=== PATIENT | male | born 1960 | race African-American/Black ===

== ENCOUNTER → 2022-08-31 11:43 | Outpatient (BNVA) | payer OTHER, SELFPAY | PROVIDERS: Visit Provider Physician Assistant | DX: G95.9 Disease of spinal cord, unspecified (principal) | CPT/HCPCS: 99202 ==

== ENCOUNTER 2022-12-22 15:14 | Outpatient (AMB) | payer OTHER, SELFPAY ==
--- NOTE | 2022-12-22 15:19 | A.SPINEOV_ITS ---
Intake Intake Visit Reasons: discuss surgery Intake Note: Mr. Biswas is here today to discuss surgery. Assessment & Plan Assessment & Plan (1) Cervical myelopathy: Code(s): G95.9 - Disease of spinal cord, unspecified Plan Dear?colleague,? On?12/22 2022.??I?saw?for?pre?operative?visit?your?patient?Peter?True.??He?was?evaluated ?by?[facility]?Dionisio t?p.a.?recently?and?I?refer?to?his?note?for?detail?history?physical?exam?and?carlos cription?of?imaging.??In?summary,?he?suffering?from?cervical?myelopathy?due?to?p rogressive?see?C4?and?C4-5?spinal?stenos is?with?myelomalacia.??He?was?offered?a?C3-4?and?C4-5?anterior?diskectomy?and?fu marialuisa.??Today,?we?discussed?the?procedure,?possible?complications?and?expected?po stoperative?course.??He?wants?to?proceed .??He?scheduled?for?January?.??He?will?get?clearance?from?his?news production assistant?a t?[facility]. I?spent?22?minutes?in?his?consult?to?discuss?the?plan?of?surgery. Thank?you?for?the?referral.?? Mike?Yesenia??,?PhD Spine?Fellowship?Trained?Neurosurgeon Director,?[facility]? [facility]? Coding Level of Care Code Est Pt Level 3 (81276) Diagnoses Cervical myelopathy G95.9
--- NOTE | 2022-12-22 15:19 | HO.SPINEOV ---
Intake Intake Visit Reasons: discuss surgery Intake Note: Mr. Biswas is here today to discuss surgery. Assessment & Plan Assessment & Plan (1) Cervical myelopathy: Code(s): G95.9 - Disease of spinal cord, unspecified Plan Dear?colleague,? On?12/22 2022.??I?saw?for?pre?operative?visit?your?patient?Peter?True.??He?was?evaluated?by?[facility]?p.a.?recently?and?I?refer?to?his?note?for?detail?history?physical?exam?and?description?of?imaging.??In?summary,?he?suffering?from?cervical?myelopathy? due?to?progressive?see?C4?and?C4-5?spinal?stenosis?with?myelomalacia.??He?was?offered?a?C3-4?and?C4-5?anterior?diskectomy?and?fusion.??Today,?we?discussed?the?procedure,?possible?complications?and?expected?postoperative?course.??He?wants?to?proceed.? ?He?scheduled?for?January?.??He?will?get?clearance?from?his?control manager?at?[facility]. I?spent?22?minutes?in?his?consult?to?discuss?the?plan?of?surgery. Thank?you?for?the?referral.?? Mike?Yeseina??,?PhD Spine?Fellowship?Trained?Neurosurgeon Director,?[facility]? [facility]? Coding Level of Care Code Est Pt Level 3 (01716) Diagnoses Cervical myelopathy G95.9
== END 2022-12-22 15:53 | disposition home or self-care (01) ==
PROVIDERS: Visit Provider Neurological Surgery
DX: G95.9 Disease of spinal cord, unspecified (principal)
CPT/HCPCS: 99213

== ENCOUNTER → 2022-12-22 15:14 | Outpatient (BNVA) | payer OTHER, SELFPAY | PROVIDERS: Visit Provider Neurological Surgery | DX: G95.9 Disease of spinal cord, unspecified (principal) | CPT/HCPCS: 99212 ==

== ENCOUNTER 2023-02-05 14:41 | Outpatient (AMB) | payer OTHER, SELFPAY ==
--- NOTE | 2023-02-05 15:05 | A.SPINEOV_ITS ---
Intake Intake Visit Reasons: Discuss surgery Intake Note: and Mrs Biswas are here today to re-discuss surgery for Mr. Biswas. Management Architect Required: No Allergies diphenhydramine [From Benadryl] Allergy (Unknown, Verified 02/03/23 11:16) Unknown metoclopramide [From Reglan] Allergy (Unknown, Verified 02/03/23 11:16) Unknown cetirizine Allergy (Verified 02/05/23 09:04) Unknown Assessment & Plan Assessment & Plan (1) Cervical myelopathy: Code(s): G95.9 - Disease of spinal cord, unspecified Plan Mr Biswas came in with his to review his procedure again. He is scheduled for ACDF C3-4, C4-5. We reviewed his diagnosis of myelopathy and the procedure again at length. They understand the goal the procedures to take the pressure off the spinal cord but that there is cord signal change suggesting spinal cord irritation and that the primary objective is to prevent him from getting worse, not necessarily to reverse all of the symptoms he is having currently. I did explain to him however that normally patients do feel improvements postoperatively. Pt was given risk and benefits of surgery including but not limited to infection, hematoma , nerve injury,durotomy, weakness,bowel/bladder injury, persistent pain, vocal hoarseness, dysphagia as well as the option to continue with conservative treatment and patient wishes to proceed with surgery. Pt is aware they should stop their motrin, aspirin 7 days prior to surgery. All questions were answered to the best of our ability. Total amount of time spent in this visit was 20 minutes in discussion of symptoms, cervical MRI imaging results and subsequent plan of care Holland Patterson MD,PhD [facility] Coding Level of Care Code Est Pt Level 3 (61862) Diagnoses Cervical myelopathy G95.9
== END 2023-02-05 15:20 | disposition home or self-care (01) ==
PROVIDERS: PCP Internal Medicine; Visit Provider Physician Assistant
DX: G95.9 Disease of spinal cord, unspecified (principal)
CPT/HCPCS: 99213

== ENCOUNTER → 2023-02-05 14:41 | Outpatient (BNVA) | payer OTHER, SELFPAY | PROVIDERS: PCP Internal Medicine; Visit Provider Physician Assistant | DX: G95.9 Disease of spinal cord, unspecified (principal) | CPT/HCPCS: 99212 ==

== ENCOUNTER → 2023-02-11 07:42 | Outpatient (BNV) | payer OTHER, SELFPAY | PROVIDERS: PCP Internal Medicine; Visit Provider Physician Assistant | DX: G95.9 Disease of spinal cord, unspecified (principal); M48.02 Spinal stenosis, cervical region | CPT/HCPCS: 20936; 22551; 22552; 22845; 22853; 99499 ==

== ENCOUNTER → 2023-02-11 07:42 | Day surgery (SDC) | payer OTHER, SELFPAY ==
--- NOTE | 2023-02-10 13:54 | HO.ANESPROP2 ---
Documented by User: Melita Pandey NP 02/10/23 14:09 HPI - Anesthesia Eval Consult details Narrative: 63yo M for C3-4,C4-5 Ant Cerv Discectomy w/ fusion Not seen in PAT d/t pt admission to [facility]. Pt admitted to [facility] 01/27/23-01/28/23 with dizziness. No stroke. Neuro signed off with no recommended f/u. Symptoms resolved. No change in regular tx plan. Cardiac optimized per 02/10/23 office visit. HFrEF - carvedilol and entresto. Farxiga stemi 2014 - cath = nonobstructive PMFSH Active Problems Active Problems: All Active Problems (Updated 02/05/23 @ 09:00 by Lisa Castro RN) Cervical myelopathy (Acute) Past Medical History Medical History Glaucoma HTN (hypertension) BPH (benign prostatic hyperplasia) Old DE (myocardial infarction) Renal cyst Prediabetes Carpal tunnel syndrome on right Leukopenia Infiltrative cardiomyopathy Degenerative disc disease, cervical Small vessel disease, cerebrovascular Mild cognitive impairment Migraine Uveitis Multinodular goiter Elevated blood lead level Macular degeneration of left eye Recurrent urticaria Dermatitis venenata Lumbar spinal stenosis CKD (chronic kidney disease) COVID-19 Surgical History Surgical History Hx of carpal tunnel repair Hx of umbilical hernia repair Status post glaucoma surgery H/O colonoscopy Social History Social History Are you a primary career guidance technician to a significant other at home: No Do you presently have visiting nurse or other home services: No Patient Tobacco Use Status: Never used Tobacco Use of substances other than those prescribed or required for medical reasons: No Have you been hit, kicked, punched, or otherwise hurt by someone within the past year? If so, by whom?: No Are you DNR?: No Advance Directives: No Advance Directives Information Provided: Yes Advance Directives on File: No Recently lost weight without trying: No Eating poorly because of decreased appetite: No Nutrition Risks: No Nutritional Risk Poor oral hygiene: No Meds Allergies Allergy/AdvReac Type Severity Reaction Status Date / Time diphenhydramine Allergy Unknown Unknown Verified 02/03/23 11:16 [From Benadryl] metoclopramide [From Reglan] Allergy Unknown Unknown Verified 02/03/23 11:16 cetirizine Allergy Unknown Verified 02/05/23 09:04 Home Medications Medication Instructions Recorded Confirmed Last Taken Type aspirin 81 mg chewable tablet 1 tab PO DAILY 01/27/23 01/27/23 02/08/23 History atorvastatin 80 mg tablet 80 mg PO BEDTIME 01/27/23 02/05/23 02/10/23 History carvedilol 25 mg tablet 25 mg PO BID 02/05/23 02/05/23 02/11/23 History dapagliflozin propanediol 5 mg 5 mg PO QAM 02/05/23 02/05/23 02/10/23 History tablet (Farxiga) prednisolone acetate 1 % eye 1 drp BID 02/05/23 02/05/23 02/10/23 History drops,suspension sacubitril 49 mg-valsartan 51 mg 1 tab PO BID 02/05/23 02/05/23 02/10/23 History tablet (Entresto) tamsulosin 0.4 mg capsule 0.8 mg PO BEDTIME 02/05/23 02/05/23 02/10/23 History Exam Exam Date and Time: February 10, 2023 1354 Height,Weight and Vital Signs: Height 5 ft 10 in Pertinent Lab Results Pertinent Lab Results: CBC and WBC from outside facility 01/18/23 WNL Narrative Narrative: EKG 01/2023 SB with 1st deg AV block Possible LAE Rightward axis Incomp RBBB Septal infarct, age undetermined Unchanged per cardiac clearance note Per Cardiology note: ECHO Nml LV size with proximal septal thickening EF 51% Cardiac MRI anterior lateral wall patchy diffuse uptake and basal inferior and inferlateral wall uptake. Cardiac cath 2020 No obstructive disease Cardiac biopsy 2021 negative for sarcoidosis or amyloidosis Assessment and Plan Assessment Anesthesia Assessment: Chart Reviewed Documented by User: Feliciano Macias MD 02/11/23 10:09 [facility] Past Medical History Medical History Glaucoma HTN (hypertension) BPH (benign prostatic hyperplasia) Old DE (myocardial infarction) Renal cyst Prediabetes Carpal tunnel syndrome on right Leukopenia Infiltrative cardiomyopathy Degenerative disc disease, cervical Small vessel disease, cerebrovascular Mild cognitive impairment Migraine Uveitis Multinodular goiter Elevated blood lead level Macular degeneration of left eye Recurrent urticaria Dermatitis venenata Lumbar spinal stenosis CKD (chronic kidney disease) COVID-19 Family History Family history of problems with anesthesia: No Surgical History Surgical History Hx of carpal tunnel repair Hx of umbilical hernia repair Status post glaucoma surgery H/O colonoscopy History of Problems with Anesthesia: No Social History Social History Are you a primary career guidance technician to a significant other at home: No Do you presently have visiting nurse or other home services: No Patient Tobacco Use Status: Never used Tobacco Use of substances other than those prescribed or required for medical reasons: No Have you been hit, kicked, punched, or otherwise hurt by someone within the past year? If so, by whom?: No Are you DNR?: No Advance Directives: No Advance Directives Information Provided: Yes Advance Directives on File: No Recently lost weight without trying: No Eating poorly because of decreased appetite: No Nutrition Risks: No Nutritional Risk Poor oral hygiene: No Meds Allergies Allergy/AdvReac Type Severity Reaction Status Date / Time diphenhydramine Allergy Unknown Unknown Verified 02/03/23 11:16 [From Benadryl] metoclopramide [From Reglan] Allergy Unknown Unknown Verified 02/03/23 11:16 cetirizine Allergy Unknown Verified 02/05/23 09:04 Home Medications Medication Instructions Recorded Confirmed Last Taken Type aspirin 81 mg chewable tablet 1 tab PO DAILY 01/27/23 01/27/23 02/08/23 History atorvastatin 80 mg tablet 80 mg PO BEDTIME 01/27/23 02/05/23 02/10/23 History carvedilol 25 mg tablet 25 mg PO BID 02/05/23 02/05/23 02/11/23 History dapagliflozin propanediol 5 mg 5 mg PO QAM 02/05/23 02/05/23 02/10/23 History tablet (Farxiga) prednisolone acetate 1 % eye 1 drp BID 02/05/23 02/05/23 02/10/23 History drops,suspension sacubitril 49 mg-valsartan 51 mg 1 tab PO BID 02/05/23 02/05/23 02/10/23 History tablet (Entresto) tamsulosin 0.4 mg capsule 0.8 mg PO BEDTIME 02/05/23 02/05/23 02/10/23 History Exam Airway Mallampati Class: III TM Dist: >3cm Neck ROM: Full Loose/Missing/Broken Teeth: Yes Other: Macroglossia Assessment and Plan Assessment Anesthesia Assessment: Anesthesia Plan Discussed Final Anesthetic Review Family History of Problems with Anesthesia: No History of Problems with Anesthesia: No NPO: Yes ASA Class: III Final Preanesthetic Review: No Changes in Pt Med Stat, Meds/Allgs Chart Reviewed, Consent Obtained/Reviewed and Anes Risks/Benef Reviewed Patient Risk: Intermediate Procedure Risk: Intermediate Anesthetic Plan Anesthetic Plan: GA Disposition: Standard PACU
[2023-02-11] VITALS (9 sets, daily range): BP systolic 130–172; BP diastolic 70–112; PULSE 77–92; RESP 12–20; TEMP 36.1–36.2; O2SAT 97–99; BMI 27.1
--- NOTE | ~2023-02-11 | FL_ITS ---
EXAMINATION: XR FLUOROSCOPY WITH IMAGES CLINICAL INFORMATION: C3-C4, C4-C5 ACDF. COMPARISON: None available. TECHNIQUE: Fluoroscopy Supervised By: Dr. Mike Patterson. Fluoroscopy Time: 0.0 minutes. Cumulative Dose: 1.00 mGy. DAP: 0.226 Gycm2. Images: 2. FINDINGS: Images demonstrate ACDF at C3-C4 and C4-C5 FL/FL guidance in OR IMPRESSION: Fluoroscopy guidance for cervical spine surgery
--- NOTE | 2023-02-11 07:00 | MHC.SHP ---
Pre-Procedural Eval Section A Date of Service: 02/11/23 Section B Chief Complaint: Disease of spinal cord, unspecified Allergies: Allergies Allergy/AdvReac Type Severity Reaction Status Date / Time diphenhydramine Allergy Unknown Unknown Verified 02/03/23 11:16 [From Benadryl] metoclopramide [From Reglan] Allergy Unknown Unknown Verified 02/03/23 11:16 cetirizine Allergy Unknown Verified 02/05/23 09:04 Review of Systems Sugical H&P ROS: Negative: Constitution, Cardiovascular, Respiratory, Neurological, Psychiatric, Hem-Onc, Allergic/Immunologic, Gastrointestinal, Genitourinary, Musculoskeletal, Integumentary, Endocrine and Eyes/Ears/Nose/Throat Exam Surgical H&P Exam: Not Evaluated: HEENT, Not Evaluated: Heart, Not Evaluated: Lungs, Not Evaluated: Extremities, Not Evaluated: Abdomen, Not Evaluated: Skin and Not Evaluated: Neurological Plan I have reviewed the history and physical and performed a pertinent physical examination on my patient. No changes have occurred unless specified. Plan remains the same, C3-4, C4-5 ACDF Time Spent With Patient Time: Total time managing care of this patient today _10___ minutes.
[2023-02-11] MEDS: methocarbamoL 750 MG TABLET PO (08:23)
[2023-02-11] MEDS: Lactated Ringers 1,000 ML 50 ML IVCONT (08:23)
[2023-02-11] MEDS: Gabapentin 300 MG CAPSULE PO (08:23)
--- NOTE | 2023-02-11 13:02 | P.DS_ITS ---
DS: Providers Provider Date of Service: 02/11/23 Date of discharge: 02/11/23 Primary care physician: Candelario Beck MD Admitting clinician: Mike Patterson DS: Diagnosis Discharge Diagnosis (1) Cervical myelopathy: Status: Acute DS: Summary Time Spent with Patient Time attestation: Total time managing care of this patient today ____ minutes. Discharge coordination time: Less than 30 minutes Quality: Safe Use of Opioids Does Pt have an Active Cancer Diagnosis on the Problem List?: No Quality: Stroke Does the patient have a stroke diagnosis?: No Physical Exam Vital Signs: Vital Signs: Last Vital Signs Temp 97 F 02/11/23 07:55 Pulse 77 02/11/23 07:55 Resp 20 02/11/23 07:55 BP 133/83 02/11/23 07:55 Pulse Ox 97 02/11/23 07:55 O2 Del Method Room Air 02/11/23 07:55 BMI result Body Mass Index 27.1 DS: Data Data Completed and Pending Labs on day of discharge: Laboratory Results - last 24 hr 02/11/23 08:07 Blood Type A Positive Antibody Screen NEGATIVE Discharge Plan Discharge Patient Disposition: Home, Self-Care Referrals: Candelario Beck MD [Primary Care Provider] - 1 Week Discharge Medications: New oxycodone 5 mg tablet 5 mg PO Q4H PRN (Reason: pain) Qty: 30 0RF Rx Instructions: Partial Fill upon patient request. docusate sodium [Colace] 100 mg capsule 100 mg PO BID Qty: 20 0RF Continued atorvastatin 80 mg Tablet 80 mg PO BEDTIME aspirin 81 mg tablet,chewable 1 tab PO DAILY carvedilol 25 mg tablet 25 mg PO BID prednisolone acetate 1 % drops,suspension 1 drp BID tamsulosin 0.4 mg capsule 0.8 mg PO BEDTIME Farxiga 5 mg tablet 5 mg PO QAM Entresto 49-51 mg tablet 1 tab PO BID Discharge Orders: Discharge Order (Routine); Ordered 02/11/23 Ordered By: Holland Chacko Diet: Advance to usual diet Activity on Discharge: As tolerated Activity Restrictions/Additional Instructions: After your spinal surgery we ask you to observe the following re strictions/guidelines: Activity: It is normal to feel some discomfort as you increase your activity, but that will improve with time. We ask you avoid heavy lifting or acitivities that cause pain. As a general rule, 8lbs is a safe limit for lifting right after surgery. Walk as much as you feel comfortable but not to exhaustion. You will feel extra tired the first few days after surgery. Stay well hydrated. It is OK to walk up and down stairs You may return to driving when you are off narcotics (such as vicodin, oxycodone, dilaudid, etc), and you are back to normal functional capacity. If you have any concerns please check with office before driving. Return to work is specific to each patient and each surgery, so please speak with your doctor/PA at first follow up. Please bring paperwork such as FMLA at that time if you need it filled out. Medications: For optimum pain control, it is best to start with a combination of 500 mg of Tylenol every 4 hours with 600 mg of Motrin every 8 hours, and use narcotics as needed in between for breakthrough pain. We will give you a short supply of narcotics after surgery (usually one weeks worth). If you need more please call the office but do not use more than prescribed. You will need to give our office 48 hours notice if you need narcotics refilled and we do not fill narcotics on weekends or evenings. If you are on a narcotic, it is a good idea to take a stool softener such as colace or senna to avoid constipation If you take blood thinner such as aspirin, Plavix, Coumadin, Effient, Eliquis etc for conditions such as Afib, DVT, Pulmonary embolus, coronary disease, stents etc please speak with your surgeon about specific details as to when you can resume these medications. You can resume NSAIDs on post op day 1 (eg: Motrin, Naproxen, etc). Follow up: Please call the office, , after surgery to arrange a 3 week follow up for wound check. Wound Care: You may remove your dressing on the first day after surgery. You may leave open to air. Please do not remove the steri strips underneath. they will fall off on their own in one week. IT IS NORMAL FOR THE WOUND TO OOZE OR BE BLOODY FOR A FEW DAYS AFTER SURGERY. IF THIS HAPPENS JUST PLACE NEW DRESSING OVER IT TO AVOID STAINING CLOTHES. You may shower on post op day # 1 We ask that you do not let the water soak the wound. If it does get wet, just towel dry lightly. Please do not scrub your incision or place any type of chemical/ointment on the wound. No tub baths, pools or jacuzzis for one month. If you have any leaking or redness from your wound, or fevers, please call office
[2023-02-11] MEDS: oxyCODONE HCl Immed Release 5 MG TABLET PO (13:38)
--- NOTE | 2023-02-11 13:39 | W.PM.OPN ---
Operative Note Operative Note Date of Service: 02/11/23 Narrative: Preoperative Diagnosis: Cervical myelopathy Procedure: C3-C4,C4-5 Anterior discectomy, arthrodesis and implantation cage ; C3-C5 anterior instrumentation ; local autograft; microscope Informed Consent was obtained for this operation. I have explained the nature, purpose and benefits of the operation. I have discussed the risks and benefit of the operation including possible complications or adverse events with patient/family. Alternative(s) were discussed with the patient with their relative benefits and risks as well as the consequences of not accepting the operation were included in obtaining consent. Surgeon: OSMAN VALLE MD, PHD Procedure Assisted By: Lee Ann Hare Description of Procedure: This 63-year-old male is suffering from cervical myelopathy due to severe spinal cord compression C3-C4 and C4-C5. He was offered an anterior decompression and fusion of these levels.The procedure complications were explained. The patient was consented. The patient was brought to the operating room and endotracheally intubated. The patient was put in supine position with slight extension of the neck. Prep and drape was done followed by timeout. A mid cervical incision was made followed by opening of the platysma. The prevertebral fascia was reached following the natural planes while the physician pier master assistant provided manual retraction. The prevertebral fascia was opened to expose the disc space. A spinal needle was placed in the disk space to confirm the correct level with xray. The longus colli muscles were released bilaterally and a self retaining retractor was inserted. An initial diskectomy was done of the C3-4 and C4-5 levels to works the posterior annulus. Two [place] pins were placed in the C3-C4 vertebral bodies and distraction was give over the interspace. The discectomy was completed toward the posterior annulus of the disc. The microscope was brought in. The remainder of the discectomy was completed. patient was suffering from severe spinal cord compression due to extruded disc herniations compressing the spinal cord.The posterior ligament was opened and resected to expose the underlying dura and for further removal of the herniated fragment. Osteophytes were resected from the body of C3-C4 and saved for autograft. Bilateral foraminotomies were done. The endplates were prepared after which a 6 mm cage filled with autograft was inserted into the disc space. A separate attached plate was locked down with 2 x 14 mm screws as anterior instrumentation. Attention was turned to the C4-C5 disc level. Again a large fragments of disc herniation are countered causing severe compression of the spinal cord. The pressure was released by removing those fragments. Osteophytes were removed and saved for autograft. A 6 mm cage filled with autograft was inserted into the disc space under fluoroscopic guidance. Separate attached plate was locked down with 2 x 14 mm screws as anterior instrumentation. Final x-rays in AP and lateral projection showed a satisfactory position of the implants and anterior instrumentation. The physician pier master assistant took over. The [place] pin was removed. Hemostasis was done. He closed the incision in 2 layers with a 3-0 Vicryl. Steri-Strips used to approximate incision. An OpSite with Tegaderm was used to cover the incision. All sponge and needle counts were correct. Patient was extubated and transported in stable is to recovery room. Anesthesia: General Estimated Blood Loss (ml): 10 mL Duration of Surgery: 90 minutes Postoperative Plan: Discharge home Complications: None
[2023-02-11] MEDS: ondansetron HCL 4 MG/2 ML VIAL IVPUSH (14:45)
== END | disposition home or self-care (01) ==
PROVIDERS: PCP Internal Medicine; Visit Provider Neurological Surgery
PROC: (CPT 22551; principal; 2023-02-11 09:10)
DX: G95.9 Disease of spinal cord, unspecified (principal); M48.02 Spinal stenosis, cervical region; R26.81 Unsteadiness on feet; I13.0 Hypertensive heart and chronic kidney disease with heart failure and stage 1 through stage 4 chronic kidney disease, or unspecified chronic kidney disease; N18.9 Chronic kidney disease, unspecified; I50.20 Unspecified systolic (congestive) heart failure; I42.9 Cardiomyopathy, unspecified; I25.2 Old myocardial infarction; I63.9 Cerebral infarction, unspecified; R73.03 Prediabetes; E78.5 Hyperlipidemia, unspecified; G43.909 Migraine, unspecified, not intractable, without status migrainosus; D72.819 Decreased white blood cell count, unspecified; Z79.899 Other long term (current) drug therapy; Z98.890 Other specified postprocedural states
CPT/HCPCS: 22551; 22552; 22853 ×2; 20936; 22845; 86850; 86900; 86901; C1713; J0131; J0690; J1100; J1885; J2405; J3010

== ENCOUNTER 2023-03-03 11:33 | Outpatient (AMB) | payer OTHER, SELFPAY ==
--- NOTE | 2023-03-03 11:38 | HO.SPINEOV ---
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 He reports he is satisfied with his surgery, but is concerned that he continues to feels that he is having posterior neck pain. This has caused him to go to the store and purchase a soft cervical collar which he has been wearing daily. He was strongly encouraged to discontinue the use of the soft cervical collar into attempt ROM exercises with his neck alongside basic daily household tasks. He reports that his has been assisting with his ADLs and that he has largely remained inactive. Both him and his asked extensive questions regarding his postoperative course including questions about activity, medications, durable medical equipment, return to work, and daily tasks around the home. All these questions were answered to the best of my ability. Full strength 5/5 UE / LE. Mobility is intact. Sensation grossly intact. Patient is able to ambulate well, rises from a seated position without difficulty. Incision site is closed, well healing, with no signs of drainage. We will follow-up with the patient in 6 weeks for his 2nd postoperative visit. At that time we will get x-rays to review with the patient. Dean Patterson MD,PhD [facility] Orders: Orders XR cervical spine 4V Today G95.9 - Disease of spinal cord, unspecified, Z98.1 - Arthrodesis status Coding Level of Care Code Global (63717) Diagnoses Cervical myelopathy G95.9
== END 2023-03-03 12:01 | disposition home or self-care (01) ==
PROVIDERS: PCP Internal Medicine; Visit Provider Physician Assistant
DX: G95.9 Disease of spinal cord, unspecified (principal)
CPT/HCPCS: 99024

== ENCOUNTER 2023-03-03 11:33 | Outpatient (REF) | payer OTHER, SELFPAY ==
--- NOTE | ~2023-03-03 | XR_ITS ---
EXAMINATION: XR CERVICAL SPINE CLINICAL INFORMATION: Disease and spinal cord COMPARISON: Fluoroscopic guidance from 02/11/2023 TECHNIQUE: 4 views of the cervical spine were obtained. FINDINGS: Status post anterior cervical fusion of C3-C4 and C4-C5. Spinal hardware is grossly intact. No acute visible fracture or dislocation. Straightening of normal cervical curvature. Multi level degenerative changes with osteophyte formation and facet arthropathy. No overt dynamic instability on flexion-extension views. Vertebral body heights and disc spaces are maintained. Slight prevertebral soft tissue prominence greatest at C5-C6, possibly postoperative in nature. Posterior elements are intact. Paraspinal soft tissues are unremarkable. Visualized portions of the upper chest are unremarkable. XR/XR cervical spine 4V IMPRESSION: 1. Status post anterior cervical fusion of C3-C4 and C4-C5. Spinal hardware is grossly intact. 2. No acute visible fracture or dislocation. 3. Straightening of normal cervical curvature. 4. Multi level degenerative changes without overt dynamic instability. 5. Slight prevertebral soft tissue prominence greatest at C5-C6, possibly postoperative in nature.
== END 2023-03-03 11:34 | disposition home or self-care (01) ==
LOC: HO.HOSX 11:33
PROVIDERS: PCP Internal Medicine; Visit Provider Physician Assistant
DX: Z13.89 Encounter for screening for other disorder (principal)

== ENCOUNTER 2023-04-14 11:33 | Outpatient (AMB) | payer OTHER, SELFPAY ==
--- NOTE | 2023-04-14 11:42 | HO.SPINEOV ---
Intake Intake Visit Reasons: 2nd post op with Xrays Allergies diphenhydramine [From Benadryl] Allergy (Unknown, Verified 02/03/23 11:16) Unknown metoclopramide [From Reglan] Allergy (Unknown, Verified 02/03/23 11:16) Unknown cetirizine Allergy (Verified 02/05/23 09:04) Unknown Assessment & Plan Assessment & Plan (1) S/P cervical spinal fusion: Code(s): Z98.1 - Arthrodesis status Plan Procedure: C3-C4, C4-5 Mau comes in today for his 2nd postoperative visit. He reports he has been doing much better since his previous postoperative visit. He has not used his neck brace/collar since we last spoke. He has been engaging in all of his activities of daily living, and has been doing gentle [id number] exercises with his neck. He reports that his posterior neck pain is still intermittently persistent. We reviewed his cervical x-rays today which showed no significant changes compared to his previous x-rays. No neurological deficits. Patient is able to ambulate well, rises from a seated position without difficulty. Incision site is closed, well healing, with no signs of drainage. Due to his continued posterior neck pain we will do one final check on him in 3 months to ensure it is resolving. If it has not improved we can consider a repeat MRI. Dean Patterson MD,PhD [facility] Coding Level of Care Code Global (33586) Diagnoses S/P cervical spinal fusion Z98.1
== END 2023-04-14 12:15 | disposition home or self-care (01) ==
PROVIDERS: PCP Internal Medicine; Visit Provider Physician Assistant
DX: Z98.1 Arthrodesis status (principal)
CPT/HCPCS: 99024

== ENCOUNTER → 2023-04-14 11:33 | Outpatient (BNVA) | payer OTHER, SELFPAY | PROVIDERS: PCP Internal Medicine; Visit Provider Physician Assistant | DX: G95.9 Disease of spinal cord, unspecified (principal); Z98.1 Arthrodesis status; Z09 Encounter for follow-up examination after completed treatment for conditions other than malignant neoplasm | CPT/HCPCS: 72050 ==

== ENCOUNTER 2023-07-20 14:27 | Outpatient (REF) | payer OTHER, SELFPAY ==
--- NOTE | ~2023-07-20 | MR_ITS ---
EXAMINATION: MR CERVICAL SPINE WITHOUT CONTRAST CLINICAL INFORMATION: Continued radiculopathy since surgery. COMPARISON: Plain films of the cervical spine 04/14/2023. Report of MRI scan of the cervical spine [facility] 07/06/2022. TECHNIQUE: MRI of the cervical spine was attempted using routine sequences without contrast. However, the patient could not complete the study and only sagittal T1, sagittal T2 and axial T2 sequences were obtained. FINDINGS: VERTEBRAL BODIES AND PARASPINAL SOFT TISSUES: There is overall straightening of the normal cervical lordosis. The study redemonstrates the sequelae of the zero profile ACDF procedures at C3-C4 and C4-C5; the hardware causes moderate susceptibility artifact. There is mild narrowing of intervertebral disc height at C5-C6 and C6-C7. Vertebral body heights are maintained, and no fractures are demonstrated. There is no definite edematous marrow signal. The visualized regional soft tissues are unremarkable. CERVICOMEDULLARY JUNCTION AND VISUALIZED POSTERIOR FOSSA: The craniocervical and posterior fossa structures are normal. There are areas of increased signal within the spinal cord to the left and right of midline at the level of C3-C4, described on prior imaging and consistent with myelomalacia. Accounting for artifact, spinal cord signal elsewhere appears normal. SPINAL LEVELS: C2-C3: The facet joints appear normal. There is a mild diffuse disc bulge with some effacement of CSF around the cord, but there is no cord compression or central stenosis. The neural foramina are patent bilaterally. C3-C4: The facet joints appear normal. There is a posterior disc protrusion with effacement of CSF around the cord, with mild compression of the cord. There is moderate central stenosis. There is moderate bilateral foraminal narrowing. C4-C5: The facet joints appear normal bilaterally. There is a broad-based posterior disc protrusion which is more prominent on the right and there is effacement of CSF around the cord with mild to moderate central stenosis. There are uncovertebral osteophytes and there is severe bilateral foraminal narrowing. C5-C6: The facet joints appear normal. There is a posterior disc protrusion which is focally most prominent centrally and to the left of midline with effacement of CSF around the cord without cord compression. There is moderate central stenosis. There are uncovertebral osteophytes and there is moderate bilateral foraminal narrowing. C6-C7: The facet joints appear normal bilaterally. There is a broad-based posterior disc protrusion with flattening the ventral thecal sac and spinal cord with effacement of CSF. There is mild to moderate central stenosis. There is moderate bilateral foraminal narrowing. C7-T1: The facet joints appear normal bilaterally. There is a broad-based posterior disc protrusion with distortion of the ventral thecal sac but there is no cord compression or significant central stenosis. There are uncovertebral osteophytes and there is moderate to severe bilateral foraminal narrowing. MR/MR cervical spine wo con IMPRESSION: 1. Limited incomplete MRI scan of the cervical spine as described above. 2. There are sequelae of ACDF procedures at C3-C4 and C4-C5. There are areas of increased signal within the spinal cord at C3-C4, described on prior imaging, consistent with myelomalacia. 3. At C3-C4 there is a posterior disc protrusion with mild compression of the cord and there is moderate central stenosis. There is moderate bilateral foraminal narrowing. 4. At C4-C5 there is a broad-based posterior disc protrusion, more prominent on the right. There is mild to moderate central stenosis. There is severe bilateral foraminal narrowing. 5. At C5-C6 there is a posterior disc protrusion without cord compression. There is moderate central stenosis. There is moderate bilateral foraminal narrowing. 6. At C6-C7 there is a broad-based posterior disc protrusion. There is mild to moderate central stenosis and there is moderate bilateral foraminal narrowing. 7. At C7-T1 there is a broad-based posterior disc protrusion. There is no cord compression or central stenosis. There is moderate to severe bilateral foraminal narrowing.
== END 2023-07-20 14:28 | disposition home or self-care (01) ==
LOC: HO.MRI 14:27
PROVIDERS: PCP Internal Medicine; Visit Provider Physician Assistant
DX: M54.12 Radiculopathy, cervical region (principal); Z98.1 Arthrodesis status
CPT/HCPCS: 72141

== ENCOUNTER 2023-07-27 14:53 | Outpatient (AMB) | payer OTHER, SELFPAY ==
--- NOTE | 2023-07-27 14:52 | A.SPINEOV_ITS ---
Intake Intake Visit Reasons: 3 months f/up Intake Note: Mr. Biswas is here today for his 3 months F/u. Market [employer] Worker Required: No Allergies diphenhydramine [From Benadryl] Allergy (Unknown, Verified 02/03/23 11:16) Unknown metoclopramide [From Reglan] Allergy (Unknown, Verified 02/03/23 11:16) Unknown cetirizine Allergy (Verified 02/05/23 09:04) Unknown Assessment & Plan Assessment & Plan (1) S/P cervical spinal fusion: Code(s): Z98.1 - Arthrodesis status Plan Mau is a 63-year-old male who comes in today for his 3 month follow-up appointment. To recap he had a C3-C4, C4-5 ACDF completed in January of 2023. He had continued posterior neck pain which was beginning to resolve with gentle [id number] exercises and stretching. He called our office after his last visit and stated he was having some waxing/waning radiculopathy into his bilateral upper extremities which he had a difficult time describing the distribution of. We ordered an MRI of the cervical spine, as he had a previous history of myelomalacia and stenosis in the cervical spine; we wanted to ensure this did not worsen. Mau seemed different from his baseline during this visit today. His eyes were closed throughout our encounter and he seemed to have a difficult time keeping them open when conversing with me. When discussing Mau's symptoms he described several vague & diffuse neurological symptoms which I tried to parse out when talking with him, but they were very difficult to pinpoint. He stated that he has pains going from his neck down both of his arms, but is unable to identify a specific distribution down either arm. He reported that he has some numbness and tingling in his fingertips that waxes and wanes but nothing makes it better or worse. He reports his thighs intermittently will go numb and feel like they are burning. He reported that his feet will hurt throughout the day, and he has a feeling of pins and needles in his shoulders. Low resolution / poor quality / incomplete MRI of the cervical spine completed here at [facility] was reviewed to the best of our ability. It appears to be relatively similar to the previous MRI completed and reviewed at [facility]. The patient has myelomalacia with chronic cord signal change at C3-4. There is chronic but stable moderate stenosis found diffusely throughout the cervical spine which appears similar to the previously reviewed MRI and are not associated with any cord signal changes. Impression: Mau comes in today for a follow-up after having C3-4, C4-5 ACDF completed in January 2023. We discussed his MRI imaging which shows that the area that was targeted during surgery has been decompressed, and the subsequent levels appear unchanged compared to previous imaging at [facility]. There is chronic cord signal change at C3-4, and some continued stable stenosis below his ACDF. We extensively discussed how the goal of his surgery was to arrest progression of his condition, and was not meant to resolve all of his symptoms. I did reassure him that we can continue to see progress with healing up to 1 year out from surgery. I tried to the best of my ability to answer all of his questions. There does not appear to be any acute in need for neurosurgical intervention at this time. I will review his symptoms and MRI with Dr. Patterson and call Mau if there are any additional tests / imaging that Dr. Patterson would like to have ordered. Total amount of time spent in this visit was 30 minutes in discussion of symptoms, MRI imaging results and subsequent plan of care. Dean Patterson MD,PhD [facility] Coding Level of Care Code Est Pt Level 4 (12560) Diagnoses S/P cervical spinal fusion Z98.1
== END 2023-07-27 15:17 | disposition home or self-care (01) ==
PROVIDERS: PCP Internal Medicine; Visit Provider Physician Assistant
DX: Z98.1 Arthrodesis status (principal)
CPT/HCPCS: 99214

== ENCOUNTER → 2023-07-27 14:53 | Outpatient (BNVA) | payer OTHER, SELFPAY | PROVIDERS: PCP Internal Medicine; Visit Provider Physician Assistant | DX: Z98.1 Arthrodesis status (principal) | CPT/HCPCS: 99212 ==

== ENCOUNTER 2023-07-28 11:33 | Outpatient (AMB) | payer OTHER, SELFPAY ==
--- NOTE | 2023-07-28 11:38 | HO.SPINEOV ---
Intake Intake Visit Reasons: to discuss any other testing or possible sx Intake Note: Mr. Biswas is here today to discuss any other testing or possible sx Patient Service Rep Required: No Allergies diphenhydramine [From Benadryl] Allergy (Unknown, Verified 02/03/23 11:16) Unknown metoclopramide [From Reglan] Allergy (Unknown, Verified 02/03/23 11:16) Unknown cetirizine Allergy (Verified 02/05/23 09:04) Unknown Assessment & Plan Assessment & Plan (1) S/P cervical spinal fusion: Code(s): Z98.1 - Arthrodesis status (2) Cervical myelopathy: Code(s): G95.9 - Disease of spinal cord, unspecified Plan Dear colleague On 07/28/2023 I saw for follow-up Mau Biswas. He is status post anterior diskectomy and fusion C3-4 and C4-5 6 months ago for cervical myelopathy. His neurological symptoms stayed stable. He has intermittent burning sensation down his arms had persistent numbness under his feet. He also complains of ongoing neck pain. He states that he had no symptoms for 1 month postoperatively and then this most of the symptoms returned. I explained to him that placebo effect of the surgery can do this. He does have chronic changes in the spinal cord which are permanent. I explained to him that the burning sensation is compatible with a chronic spinal cord damage. A repeat MRI shows no ongoing spinal cord compression. There is residual bilateral foraminal stenosis at C5. I would like to follow-up with Mr. Biswas in 6 months. I spent 20 minutes in his consult discussing the MRI findings and etiology of his symptoms. Mike Patterson MD, PhD Spine Fellowship Trained Neurosurgeon Director, [facility] Coding Level of Care Code Est Pt Level 3 (14012) Diagnoses S/P cervical spinal fusion Z98.1 Cervical myelopathy G95.9
== END 2023-07-28 11:57 | disposition home or self-care (01) ==
PROVIDERS: PCP Internal Medicine; Visit Provider Neurological Surgery
DX: Z98.1 Arthrodesis status (principal); G95.9 Disease of spinal cord, unspecified
CPT/HCPCS: 99213

== ENCOUNTER → 2023-07-28 11:33 | Outpatient (BNVA) | payer OTHER, SELFPAY | PROVIDERS: PCP Internal Medicine; Visit Provider Neurological Surgery | DX: G95.9 Disease of spinal cord, unspecified (principal); Z98.1 Arthrodesis status | CPT/HCPCS: 99212 ==

== ENCOUNTER 2024-02-23 13:49 | Outpatient (AMB) | payer MEDICARE, MEDICAID, SELFPAY ==
--- NOTE | 2024-02-23 13:50 | HO.SPINEOV ---
Intake Visit Reasons: 6 months f/up Intake Note: Mr. Biswas is here today for his 6 Month's F/u. Sagger Filler Required: No Allergies diphenhydramine [From Benadryl] Allergy (Unknown, Verified 02/23/24 13:52) Unknown metoclopramide [From Reglan] Allergy (Unknown, Verified 02/23/24 13:52) Unknown cetirizine Allergy (Verified 02/23/24 13:52) Unknown Assessment & Plan Assessment & Plan (1) S/P cervical spinal fusion: Code(s): Z98.1 - Arthrodesis status Category: Surgical Plan Dear colleague, On 02/23/2024 I saw for final follow-up Mau Biswas. He is status post 2 level anterior diskectomy and fusion more than 1 year ago for cervical myelopathy and neck pain. The neck pain has improved but is still present daily. He also mentioned that all his joints are hurting. He tried anti-inflammatory drugs in the past that provided no relief. His last MRI showed a sufficient decompression of the spinal cord. He understands that I have no further treatment options for his poly arthritic pain. Thank you for allowing me take care of this patient. Mike Patterson MD, PhD Spine Fellowship Trained Neurosurgeon Director, [facility] [place] [facility] Coding Level of Care Code Est Pt Level 2 (54645) Diagnoses S/P cervical spinal fusion Z98.1
== END 2024-02-23 14:10 | disposition home or self-care (01) ==
PROVIDERS: PCP Internal Medicine; Visit Provider Neurological Surgery
DX: Z98.1 Arthrodesis status (principal)
CPT/HCPCS: 99212

== ENCOUNTER → 2024-02-23 13:49 | Outpatient (BNVA) | payer MEDICARE, MEDICAID, SELFPAY | PROVIDERS: PCP Internal Medicine; Visit Provider Neurological Surgery | DX: Z98.1 Arthrodesis status (principal) | CPT/HCPCS: 99212 ==